=== PATIENT | male | born 1995 | race Two or more races ===

== ENCOUNTER 2018-08-10 14:38 | Emergency (ER) | payer BC, OTHER ==
[~2018-08-10] VITALS: Ht 177.8 cm; Wt 102.7 kg
[~2018-08-10 14:38] MED LIST: NO HOME MEDS
[2018-08-10 15:22] VITALS: BP 129/79
== END 2018-08-10 16:06 | disposition home or self-care (01) ==
LOC: ER 14:39
DX: S63.592A Other specified sprain of left wrist, initial encounter (principal); S50.01XA Contusion of right elbow, initial encounter; S70.01XA Contusion of right hip, initial encounter; W10.8XXA Fall (on) (from) other stairs and steps, initial encounter; Y93.01 Activity, walking, marching and hiking; Y92.69 Other specified industrial and construction area as the place of occurrence of the external cause; Y99.9 Unspecified external cause status
CPT/HCPCS: 73080; 99283

== ENCOUNTER 2019-05-05 11:16 | Emergency (ER) | payer OTHER ==
[~2019-05-05] VITALS: Ht 180.3 cm; Wt 123.9 kg
[2019-05-05 11:29] VITALS: BP 143/79
[2019-05-05] MEDS ORDERED: LIDOcaine 1% W/epiNEPHrine 1:100,000 20ml vial ONE (12:00)
[2019-05-05] MEDS ORDERED: LIDOcaine 1% w/EPI 1:200,000 injection 10mL vial IM ONE (12:25)
[2019-05-05] MEDS ORDERED: LIDOcaine 1% W/epiNEPHrine 1:200,000 10ml vial IJ ONE (12:30)
== END 2019-05-05 12:58 | disposition home or self-care (01) ==
LOC: ER 11:16
DX: S61.210A Laceration without foreign body of right index finger without damage to nail, initial encounter (principal); W27.0XXA Contact with workbench tool, initial encounter; Y93.89 Activity, other specified; Y92.89 Other specified places as the place of occurrence of the external cause; Y99.8 Other external cause status
CPT/HCPCS: 73140; 99283

== ENCOUNTER 2021-07-17 19:10 | Emergency (ER) | payer OTHER ==
[~2021-07-17] VITALS: Ht 180.3 cm; Wt 104.5 kg
[2021-07-17] MEDS ORDERED: acetaminophen 325mg tablet PO ONE (19:40)
[2021-07-17 20:30] LABS: BASOPHILS # (AUTO) 0.1 X10'3 (0-0.2); BASOPHILS % (AUTO) 0.3 % (0-1); EOSINOPHILS % (AUTO) 0.1 % (0-6); HEMATOCRIT 49.4 % (42.0-52.0); LYMPHOCYTES # (AUTO) 1.5 X10'3 (1.1-4.8); LYMPHOCYTES % (AUTO) 5.7 % (21-51); MEAN CORPUSCULAR HEMOGLOBIN 29.1 PG (27.0-31.0); MEAN CORPUSCULAR HGB CONC 34.3 g/dL (33.0-36.5); MEAN CORPUSCULAR VOLUME 84.7 FL (78-98); MEAN PLATELET VOLUME 8.4 FL (7.4-10.4); MONOCYTES # (AUTO) 1.3 X10'3 (0-0.9); MONOCYTES % (AUTO) 4.8 % (2-12); NEUTROPHILS # (AUTO) 23.3 X10'3 (1.8-7.7); NEUTROPHILS % (AUTO) 89.1 % (42-75); PLATELET COUNT 343 X10'3 (140-440); RED BLOOD COUNT 5.84 X10'6 (4.70-6.10); RED CELL DISTRIBUTION WIDTH 13.3 % (11.5-14.5)
[2021-07-17 20:33] LABS: WHITE BLOOD COUNT 26.2 X10'3 (4.5-11.0)
[2021-07-17] MEDS ORDERED: azithromycin/NS 500mg/250ml 250 ML IV ONE (20:35)
[2021-07-17] MEDS ORDERED: normal saline 1000ML IV soln IV ONE (20:35)
[2021-07-17] MEDS ORDERED: CefTRIAXone 2gm/D5W 50ml BAG 50 ML IV ONE (20:35)
[2021-07-17 20:44] LABS: ALANINE AMINOTRANSFERASE 19 U/L (12-78); ALBUMIN 3.8 G/DL (3.4-5.0); ALBUMIN/GLOBULIN RATIO 0.9 (1.1-1.5); ALKALINE PHOSPHATASE 113 IU/L (46-116); ANION GAP 13 (8-16); ASPARTATE AMINO TRANSFERASE 6 U/L (10-37); BILIRUBIN,TOTAL 0.8 MG/DL (0.1-1.0); BLOOD UREA NITROGEN 10 MG/DL (7-18); CHLORIDE 97 MMOL/L (99-107); CREATININE 0.83 MG/DL (0.60-1.10); GLUCOSE 101 MG/DL (70-104); POTASSIUM 3.6 MMOL/L (3.5-5.1); SODIUM 130 MMOL/L (135-145); TOTAL CARBON DIOXIDE 19.9 MMOL/L (24-32); TOTAL PROTEIN 7.9 G/DL (6.4-8.2); eGFR > 90 ML/MIN
[2021-07-17 21:55] LABS: PLATELET ESTIMATE NORMAL; TOTAL CELLS COUNTED 100
[2021-07-17] MEDS ORDERED: ALBU6.7H9 INH (22:24)
[2021-07-17] MEDS ORDERED: PRED20TA PO (22:24)
[2021-07-17] MEDS ORDERED: BENZ-38 PO (22:24)
[2021-07-17] MEDS ORDERED: LEVO500T90 PO (22:24)
[2021-07-17] MEDS ORDERED: ketorolac trometh. 30mg/ml inj. IV ONE (22:35)
[2021-07-17 23:08] VITALS: BP 143/85
== END 2021-07-17 23:11 | disposition home or self-care (01) ==
LOC: ER 19:13
DX: J18.9 Pneumonia, unspecified organism (principal); Z20.822 Contact with and (suspected) exposure to COVID-19; R19.7 Diarrhea, unspecified; R43.8 Other disturbances of smell and taste; R50.9 Fever, unspecified; R06.02 Shortness of breath; R51.9 Headache, unspecified; Z72.89 Other problems related to lifestyle; Z79.2 Long term (current) use of antibiotics; Z79.899 Other long term (current) drug therapy
CPT/HCPCS: 36415; 71045; 80053; 84145; 85007; 85025; 87502; 87503; 87635; 93005; 96365; 96375; 99285; C9803; J0456; J0696; J1885; J7030

== ENCOUNTER 2021-07-18 16:00 | Emergency (ER) | payer OTHER ==
[~2021-07-18] VITALS: Ht 180.3 cm; Wt 121.0 kg
[~2021-07-18 16:00] MED LIST changes: +ALBU6.7H9 INH; +BENZ-38 PO; +LEVO500T90 PO; +PRED20TA PO
[2021-07-18 16:08] VITALS: BP 144/90
== END 2021-07-18 20:50 | disposition home or self-care (01) ==
LOC: ER 16:01
DX: S86.911A Strain of unspecified muscle(s) and tendon(s) at lower leg level, right leg, initial encounter (principal); M79.661 Pain in right lower leg; Z72.89 Other problems related to lifestyle; Z79.2 Long term (current) use of antibiotics; Z79.899 Other long term (current) drug therapy; X58.XXXA Exposure to other specified factors, initial encounter; Y93.89 Activity, other specified; Y92.89 Other specified places as the place of occurrence of the external cause; Y99.8 Other external cause status
CPT/HCPCS: 93971; 99284